=== PATIENT | female | born 2000 | race Caucasian/White ===

== ENCOUNTER 2020-12-12 18:06 | Emergency (ER) | payer OTHER | END 2020-12-12 19:26 | disposition left against medical advice (07) | LOC: ER 18:06 | DX: R10.30 Lower abdominal pain, unspecified (principal); R10.2 Pelvic and perineal pain; Z53.21 Procedure and treatment not carried out due to patient leaving prior to being seen by health care provider ==

== ENCOUNTER → 2021-01-09 | Outpatient (CLI) | payer OTHER ==
--- NOTE | 2021-01-09 16:14 | KCIC ---
EXAM: Pelvic sonogram. HISTORY: Pelvic pain. Irregular menses. TECHNIQUE: Sonographic imaging of the pelvis was performed. COMPARISON: None. FINDINGS: The uterus measures 7.1 x 4.3 x 3.2 cm. The individual stripe measures 2 mm in thickness. T he ovaries are normal in size and demonstrate normal blood flow. There is a 3.8 cm right ovarian cyst . This is simple in appearance. There is a small amount of free fluid within the posterior cul-de-sac . IMPRESSION: 1. 3.8 cm simple appearing right ovarian cyst and small amount of pelvic free fluid. 2. Thin endometrial stripe. Electronically signed by: Petty Wolff MD (01/09/2021 4:12 PM) [id number]
== END ==
LOC: KCIC US 15:18
PROVIDERS: ATTEND Family Medicine
DX: N91.2 Amenorrhea, unspecified (principal); R10.2 Pelvic and perineal pain
CPT/HCPCS: 76856